=== PATIENT | female | born 1980 | race Caucasian/White ===

== ENCOUNTER 2018-02-24 06:17 | Day surgery (SDC) | payer OTHER ==
[~2018-02-24] VITALS: Ht 170.2 cm; Wt 82.2 kg
[~2018-02-24 06:17] MED LIST: GUAI600T33; HYDACE5 PO; NUVA RING; RXHYDACE PO; SYEDA 28 TABLE1 EACH PO
== END 2018-02-24 10:15 | disposition home or self-care (01) ==
LOC: ORSCSDS 06:17
PROVIDERS: Podiatrist Foot & Ankle Surgery
PROC: 0YPB0YZ Removal of Other Device from Left Lower Extremity, Open Approach (ICD-10-PCS; principal; 2018-02-24 07:30)
PROC: 0QSP04Z Reposition Left Metatarsal with Internal Fixation Device, Open Approach (ICD-10-PCS; principal; 2018-02-24 07:30)
DX: S92.355G Nondisplaced fracture of fifth metatarsal bone, left foot, subsequent encounter for fracture with delayed healing (principal); Z87.891 Personal history of nicotine dependence
CPT/HCPCS: C1713; J0171; J0690; J2250; J2405; J3010; J7120

== ENCOUNTER → 2019-01-25 | Outpatient (CLI) | payer OTHER | END | disposition home or self-care (01) | LOC: LAB SHORT 12:26 → PLD 12:26 | DX: D06.7 Carcinoma in situ of other parts of cervix (principal); R87.810 Cervical high risk human papillomavirus (HPV) DNA test positive; R87.612 Low grade squamous intraepithelial lesion on cytologic smear of cervix (LGSIL) | CPT/HCPCS: 88305 ==

== ENCOUNTER → 2019-02-23 | Outpatient (CLI) | payer OTHER | END | disposition home or self-care (01) | LOC: PLD 14:10 → LAB SHORT 14:10 | DX: D06.9 Carcinoma in situ of cervix, unspecified (principal) | CPT/HCPCS: 88305 ==